=== PATIENT | male | born 1960 | race Caucasian/White ===

== ENCOUNTER → 2019-12-09 11:32 | Outpatient (BNVA) | payer BC, SELFPAY | PROVIDERS: Family Provider Nurse Practitioner Family; PCP Nurse Practitioner Family; Visit Provider Nurse Practitioner Family | DX: E11.9 Type 2 diabetes mellitus without complications (principal); I10 Essential (primary) hypertension | CPT/HCPCS: 80053; 83036; 85025 ==

== ENCOUNTER → 2020-01-22 11:21 | Outpatient (BNVA) | payer BC, SELFPAY | PROVIDERS: Family Provider Nurse Practitioner Family; PCP Nurse Practitioner Family; Visit Provider Nurse Practitioner Family | DX: M10.9 Gout, unspecified (principal); M19.90 Unspecified osteoarthritis, unspecified site; I10 Essential (primary) hypertension; R60.9 Edema, unspecified | CPT/HCPCS: 73562; 80053; 81001; 84550; 85025 ==

== ENCOUNTER → 2020-06-14 10:56 | Outpatient (BNVA) | payer BC, SELFPAY | PROVIDERS: Family Provider Nurse Practitioner Family; PCP Nurse Practitioner Family; Visit Provider Nurse Practitioner Family | DX: I10 Essential (primary) hypertension; Z13.6 Encounter for screening for cardiovascular disorders; M10.9 Gout, unspecified; E55.9 Vitamin D deficiency, unspecified; L03.039 Cellulitis of unspecified toe; E11.8 Type 2 diabetes mellitus with unspecified complications | CPT/HCPCS: 80053; 80061; 81003; 82306; 83036; 84443; 84550; 85025 ==

== ENCOUNTER → 2021-01-31 11:36 | Outpatient (BNVA) | payer OTHER, SELFPAY | PROVIDERS: Family Provider Nurse Practitioner Family; PCP Nurse Practitioner Family; Visit Provider Nurse Practitioner Family | DX: E11.9 Type 2 diabetes mellitus without complications (principal); Z13.6 Encounter for screening for cardiovascular disorders | CPT/HCPCS: 80053; 80061; 81003; 83036; 83721; 85025 ==

== ENCOUNTER 2021-05-30 13:42 | Outpatient (CLI) | payer OTHER, SELFPAY ==
--- NOTE | 2021-05-30 13:30 | USCV_ITS ---
Mauro Torres Age: 60 Gender: M : 1960 Exam Date: 05/30/2021 13:51 Ordering Phys: LORE Hartman APRN Technologist: Gerald Kelley [place]am [place] [facility] [place]: RT LEG PAIN AND SWELLING HISTORY: Lower extremity edema. PROCEDURES: Venous duplex imaging was performed in only the right lower extremity. The following venous structures were evaluated: common femoral vein, profunda vein, proximal portion of the greater saphenous vein, superficial femoral vein, and the popliteal vein. In addition, the posterior tibial and peroneal trunk were evaluated. FINDINGS: Evidence of acute occlusive deep vein thrombosis in the right popliteal, peroneal and posterior tibial veins with abnormal flow dynamics. Otherwise normal doppler exam. CONCLUSIONS There is evidence of acute RIGHT lower extremity deep venous thrombosis. Dr. Bhumika Franks DO (Electronically Signed) Final Date: 30 May 2021 15:56 Amended: 31 May 2021 14:41 C
== END 2021-05-30 13:43 | disposition home or self-care (01) ==
LOC: RAD 13:46
PROVIDERS: PCP Nurse Practitioner Family; Visit Provider Nurse Practitioner Family
DX: I82.401 Acute embolism and thrombosis of unspecified deep veins of right lower extremity (principal); M79.89 Other specified soft tissue disorders
CPT/HCPCS: 93971

== ENCOUNTER 2021-05-30 14:16 | Emergency (ER) | payer OTHER, SELFPAY ==
[2021-05-30 14:43] VITALS: BP 156/97; PULSE 105; RESP 18; TEMP 36.9; O2SAT 94; BMI 34.2
--- NOTE | 2021-05-30 15:05 | W.ED.EXTPRO ---
HPI - Extremity Problem General: Chief complaint: Extremity Injury, Lower Stated complaint: BLOOD CLOT BEHIND R KNEE; U/S JUST PERFORMED Time Seen by Provider: 05/30/21 15:05 History of Present Illness: HPI Narrative: Mr. Torres is a 60-year-old gentleman with significant past medical history of hypertension, hyperlipidemia, obesity, type 2 diabetes who presents to the emergency department due to blood clots. He reports 1 week of nontraumatic onset initially mild but now worsening left lower extremity pain and swelling. Pain is aching in nature and primarily in the left calf and behind the left knee. He has tried home medications without significant relief and presented to PCP today and an ultrasound was performed. Report on the ultrasound was DVT so he presented to the emergency department. Symptoms are worse with movement but do not go with rest. No other specific exacerbating, or alleviating factors identified. No family history of coagulopathy or clotting disorder. No recent extended immobility or surgeries. No history of similar. Patient denies hematemesis, dark tarry or bloody stool, hematuria. Review of Systems General: Reports: 10 or more systems reviewed and unremarkable except in HPI and below PFSH ED PFSH: Medical History Diabetic foot DM type 2 (diabetes mellitus, type 2) Essential hypertension Gout Hyperlipidemia associated with type 2 diabetes mellitus Hypersomnia Hypertension screen Inflamed toenail Osteoarthritis Prostate cancer screening Sleep apnea Vitamin D deficiency Social History Smoking and tobacco status: former smoker Second hand smoke exposure: No Smoking risk assessment/counseling performed?: No Alcohol intake: never Desire information about alcohol rehabilitation?: No Counseling given: No Desire information about substance/drug rehabilitation?: No Counseling given: No Physical Exam Narrative: EXAM NARRATIVE: GENERAL/CONSTITUTIONAL - well-appearing. Mildly uncomfortable due to leg pain Eyes - PERRL, no conjunctival injection ENMT - Atraumatic external nose and ears. Moist mucous membranes NECK - supple. trachea midline CARDIOVASCULAR - regular rate and rhythm. Peripheral pulses 2+ and equal RESPIRATORY -clear to auscultation bilaterally. ABDOMEN/GI - Nontender/Nondistended. MSK -left lower extremity visually larger than right. Tenderness palpation of posterior calf. Mild overlying stasis erythema. Distal CMS intact. SKIN - Warm, Dry NEURO - alert and appropriately oriented. Course ED course: - Patient was seen and evaluated by me at bedside - Patient placed on cardiac monitors, IV access obtained - Initial evaluation notable for exam as noted above -Patient has complex history of noncompliance and no recent lab work, therefore lab work was appropriate - Labs notable for mild hemoconcentration compared to prior, hyperglycemia without evidence of electrolyte derangement. -Ultrasound images report reviewed - Upon serial reexamination after treatment the patient was improved - Based on patient history, evaluation, labs, and imaging as interpreted the most likely cause of the patient's condition is DVT. Patient appropriate for NOAC initiation and outpatient management. - The results of ED evaluation were discussed with the patient including prescriptions and/or symptomatic cares (if applicable) including appropriate and responsible use, as well as further discussion regarding strict return precautions for any evidence of bleeding or traumatic injury, followup plan, and return precautions. The patient verbalized understanding and felt safe for discharge. - Patient discharged in satisfactory condition. Vital Signs: Vital signs: Vital Signs Temperature 98.5 F 05/30/21 14:43 Pulse Rate 105 H 05/30/21 14:43 Respiratory Rate 18 05/30/21 17:02 Blood Pressure 156/97 05/30/21 14:43 Pulse Oximetry 97 05/30/21 17:02 MDM - Extremity (Nontraumatic) Medical Records: Attestation: I reviewed the patient's medical records. Lab Data: Attestation: I reviewed the patient's lab results. Labs: Lab Results 05/30/21 05/30/21 16:01 16:01 WBC 9.7 10^3/uL 10^3/ uL (4.0-10.0) RBC 6.02 10^6/uL H 10 ^6/uL (4.1-5.3) Hgb 18.0 g/dL H g/dL (11.7-16.6) Hct 53.6 % H % (42.0-52.0) MCV 89.0 fl fl (80-94) MCH 29.9 pg pg (28.0-34.0) MCHC 33.6 g/dL g/dL (30.0-36.0) RDW 13.0 % % (12.1-15.1) Plt Count 147 10^3/cmm 10^3 /cmm (130-400) MPV 11.1 fL H fL (7.4-10.4) Neut % (Auto) 67.1 % % Lymph % (Auto) 19.7 % % [place] % (Auto) 10.2 % % Eos % (Auto) 1.9 % % Baso % (Auto) 0.6 % % Neut # (Auto) 6.53 10^3/uL 10^3 /uL (1.8-7.7) Lymph # (Auto) 1.9 10^3/uL 10^3/ uL (0.8-4.8) [place] # (Auto) 1.0 10^3/uL H 10^ 3/uL (0.2-0.9) Eos # (Auto) 0.2 10^3/uL 10^3/ uL (0.0-0.8) Baso # (Auto) 0.1 10^3/uL 10^3/ uL (0.0-0.1) Nucleated RBC % (a uto) 0 % % Nucleated RBCs # 0.0 /100WBC /100W BC Sodium 136 mmol/L mmol/L (136-145) Potassium 4.4 mmol/L mmol/L (3.5-5.1) Chloride 96 mmol/L L mmol/ L (98-107) Carbon Dioxide 26 mmol/L mmol/L (22-29) Anion Gap 18.4 (5-19) BUN 15 mg/dL mg/dL (8-23) Creatinine 0.7 mg/dL mg/dL (0.7-1.2) GFR Calculation 114.6 mL/min mL/m in (90-130) Glucose 301 mg/dL H mg/dL (65-115) Calculated Osmolal ity 294 mOsm/kg mOsm/ kg (285-295) Calcium 9.5 mg/dL mg/dL (8.5-10.5) Total Bilirubin 1.5 mg/dL H mg/dL (0.15-1.2) AST 12 U/L U/L (0-40) ALT 31 U/L U/L (0-41) Alkaline Phosphata se 124 IU/L IU/L (40-130) Total Protein 7.9 g/dL g/dL (6.6-8.7) Albumin 4.0 g/dL g/dL (3.5-5.2) Globulin 3.9 g/dL g/dL (1.3-4.6) Discharge Plan Discharge Patient Disposition: Home Clinical Impression: DVT (deep venous thrombosis) Condition: Stable Prescriptions: New Eliquis DVT-PE Treat 30D Start 5 mg (74 tabs) tablets,dose pack See Rx Instructions .ROUTE .COMPLEX Qty: 74 RF: 0 oxycodone 5 mg tablet 5 mg PO Q4H PRN (Reason: pain) Qty: 10 RF: 0 No Action metformin 1,000 mg tablet 1,000 mg PO BID 90 Days Qty: 180 RF: 1 Januvia 100 mg tablet 100 mg PO DAILY 90 Days Qty: 90 RF: 1 glipizide 5 mg tablet extended release 24hr 5 mg PO DAILY 90 Days Qty: 90 RF: 1 Levemir FlexTouch U-100 Insuln 100 unit/mL (3 mL) insulin pen 20 unit SUBCUT DAILY 90 Days Qty: 15 RF: 1 ezetimibe [Zetia] 10 mg tablet 10 mg PO DAILY 30 Days Qty: 30 RF: 2 atorvastatin 40 mg tablet 40 mg PO DAILY Qty: 30 RF: 5 (DME) pen needle, diabetic [BD Ultra-Fine Micro Pen Needle] 32 gauge x 1/4 needle See Rx Instructions .ROUTE .MEDSUPPLY Qty: 100 RF: 5 amlodipine 10 mg tablet See Rx Instructions .ROUTE .COMPLEX Qty: 30 RF: 2 losartan 50 mg tablet See Rx Instructions .ROUTE .COMPLEX Qty: 60 RF: 2 hydrochlorothiazide 25 mg tablet See Rx Instructions .ROUTE .COMPLEX Qty: 30 RF: 5 Discharge Orders: Discharge ED (Routine); Ordered 05/30/21 Ordered By: Mg Jacques Referrals: LORE Hartman, GREASE REFINER OPERATOR [Primary Care Provider] - Discharge Diet: Usual diet Discharge Activity: Resume usual activity Patient Instructions: Apixaban (By mouth) (Eliquis), Deep Vein Thrombosis (ED), Opioid Safety Activity Restrictions/Additional Instructions: Thank you for visiting the emergency department. You were seen and evaluated for DVT. You will be started on anticoagulation, a medication called Eliquis. This increases risk of bleeding. You will be also given a medication for pain control, I would expect as the Eliquis works your symptoms will improve. Do not combine with other sedating medications or operate vehicles while under the influence of opioids. They can make you constipated, I recommend a stool softener. Please return to the emergency department for any bleeding, any trauma, uncontrolled pain, or anything else that you are concerned about and feel needs emergency department evaluation. Coding Level of Care Code ED Senior [employer] Developer for Joanne Zhou
[2021-05-30 16:11] LABS: Basophils # 0.1 10^3/uL (0.0-0.1); Basophils % 0.6 %; Eosinophils # 0.2 10^3/uL (0.0-0.8); Eosinophils % 1.9 %; Hematocrit 53.6 % (42.0-52.0); Lymphocytes # 1.9 10^3/uL (0.8-4.8); Lymphocytes % 19.7 %; Mean Corpuscular HGB Conc 33.6 g/dL (30.0-36.0); Mean Corpuscular Hemoglobin 29.9 pg (28.0-34.0); Mean Platelet Volume 11.1 fL (7.4-10.4); Monocytes % 10.2 %; Neutrophils # 6.53 10^3/uL (1.8-7.7); Neutrophils % 67.1 %; Nucleated Red Blood Cells % 0 %; Platelet Count 147 10^3/cmm (130-400); Red Blood Count 6.02 10^6/uL (4.1-5.3); White Blood Count 9.7 10^3/uL (4.0-10.0)
[2021-05-30 17:00] LABS: Alanine Aminotransferase 31 U/L (0-41); Alkaline Phosphatase 124 IU/L (40-130); Anion Gap 18.4 (5-19); Aspartate Amino Transferase 12 U/L (0-40); Blood Urea Nitrogen 15 mg/dL (8-23); Calcium 9.5 mg/dL (8.5-10.5); Carbon Dioxide 26 mmol/L (22-29); Chloride 96 mmol/L (98-107); Globulin 3.9 g/dL (1.3-4.6); Glomerular Filtration Rate 114.6 mL/min (90-130); Glucose 301 mg/dL (65-115); Osmolality Calculated 294 mOsm/kg (285-295); Potassium 4.4 mmol/L (3.5-5.1); Sodium 136 mmol/L (136-145); Total Bilirubin 1.5 mg/dL (0.15-1.2); Total Protein 7.9 g/dL (6.6-8.7)
[2021-05-30 17:02] VITALS: RESP 18; O2SAT 97
[2021-05-30] MEDS: morphine 4 mg/mL SDV 1 mL IVP (17:02)
== END 2021-05-30 17:41 | disposition home or self-care (01) ==
PROVIDERS: Emergency Provider Emergency Medicine; PCP Nurse Practitioner Family
DX: I82.401 Acute embolism and thrombosis of unspecified deep veins of right lower extremity (principal); Z79.4 Long term (current) use of insulin; E11.9 Type 2 diabetes mellitus without complications; I10 Essential (primary) hypertension; E78.5 Hyperlipidemia, unspecified; Z87.891 Personal history of nicotine dependence
CPT/HCPCS: 80053; 85025; 96374; 99283; J2270

== ENCOUNTER → 2022-05-12 10:18 | Outpatient (BNVA) | payer SELFPAY | PROVIDERS: PCP Nurse Practitioner Family; Visit Provider Nurse Practitioner Family | DX: E11.9 Type 2 diabetes mellitus without complications (principal) | CPT/HCPCS: 80053; 81000; 83036; 85025 ==

== ENCOUNTER → 2023-08-06 10:27 | Outpatient (BNVA) | payer OTHER, BC, SELFPAY | PROVIDERS: PCP Nurse Practitioner Family; Visit Provider Nurse Practitioner Family | DX: E11.69 Type 2 diabetes mellitus with other specified complication (principal); E78.5 Hyperlipidemia, unspecified; Z12.5 Encounter for screening for malignant neoplasm of prostate; E55.9 Vitamin D deficiency, unspecified; I10 Essential (primary) hypertension; M10.9 Gout, unspecified | CPT/HCPCS: 80053; 80061; 81003; 82306; 83036; 84443; 85025; G0103 ==

== ENCOUNTER 2023-08-25 10:36 | Emergency (ER) | payer OTHER, BC, MEDICAID, SELFPAY ==
[2023-08-25 10:42] VITALS: BP 176/116; PULSE 114; RESP 25; TEMP 36.7; O2SAT 96
--- NOTE | 2023-08-25 11:00 | XRR_ITS ---
PROCEDURE INFORMATION: Exam: XR Chest Exam date and time: 08/25/2023 11:17 AM Age: 62 years old Clinical indication: Cough; Additional info: Cough congestion TECHNIQUE: Imaging protocol: Radiologic exam of the chest. Views: 1 view. COMPARISON: No relevant prior studies available. FINDINGS: Lungs: Minimal bibasilar subsegmental atelectasis. No infiltrate. Pleural spaces: Unremarkable. No pleural effusion. No pneumothorax. Heart/Mediastinum: Unremarkable. No cardiomegaly. Bones/joints: Unremarkable. XR/XR chest 1V portable [id number] IMPRESSION: Minimal bibasilar subsegmental atelectasis.
[2023-08-25] MEDS: racepinephrine 0.5 mL Neb INHALATION (11:06)
[2023-08-25 11:08] VITALS: PULSE 111; RESP 16; O2SAT 94
--- NOTE | 2023-08-25 11:12 | ED_ITS ---
HPI - SOB/Dyspnea 2 General: Chief Complaint: Shortness of Breath/Dyspnea Stated Complaint: SOB, Oxygen level low Time Seen by Provider: 08/25/23 10:55 History of Present Illness: HPI Narrative: Presents to the ER from urgent care complaining of wheezing sore throat shortness of breath and cough. Patient saw his PCP about a 2 weeks ago was given a prescription of doxycycline and prednisone. Prednisone lasted for 5 days. Doxycycline for 10 days. Patient finished both prescriptions he said he got a little bit better but now he is getting worse. Patient went to urgent care and was given a shot of Decadron and they suggested that he come here so is here for further evaluation. Patient's heart rates approximately 114 bpm, his respirations are 25/min, patient's O2 sat is about 96% on room air but he has audible wheezing and stridor. Review of Systems 2 General: Reports: 10 or more systems reviewed and unremarkable except in HPI and below PFSH ED 2 PFSH: Medical History Impacted cerumen of both ears Hyperlipidemia associated with type 2 diabetes mellitus Prostate cancer screening Diabetic foot Inflamed toenail Vitamin D deficiency Hypertension screen Hypersomnia Sleep apnea Gout Osteoarthritis DM type 2 (diabetes mellitus, type 2) Essential hypertension Social History Smoking and tobacco/nicotine status: former use of tobacco/nicotine Second hand smoke exposure: No Alcohol intake: never Substance/Drug Use: never Physical Exam 2 Const: COMMON NORMALS: no acute distress, average body habitus, patient oriented x3, no limitations, healthy appearing, alert and well nourished HENMT: COMMON NORMALS: normocephalic, atraumatic, hearing grossly normal bilaterally, external ears normal, Normal external nose present, moist oral mucous membranes and oropharynx normal HEAD & SCALP: normocephalic and atraumatic NOSE: Normal external nose present EXTERNAL EAR: Yes external ears normal Neck/C-Spine: COMMON NORMALS: full ROM, no lymphadenopathy, supple, no meningeal signs, no JVD and Thyroid normal THYROID: Thyroid normal Chest: COMMONS NORMALS: normal inspection of the chest and normal palpation of entire chest wall Resp: COMMON NORMALS: normal respiratory effort, No retractions and No use of accessory muscles; negative for clear to auscultation bilaterally (Diffuse wheezing and stridorous sounds.) AUSCULTATION: not clear to auscultation bilaterally (Diffuse wheezing and stridorous sounds.) Cardio: COMMON NORMALS: no JVD, regular rhythm, S1 normal heart sound present, S2 normal heart sound present, No gallops present (Cardio), No clicks present (Cardio), No murmurs present (Cardio) and No rub (Cardio); negative for regular rate (Tachycardic) RATE: abnormal rate (Tachycardic) RHYTHM: regular rhythm HEART SOUNDS: S1 normal heart sound present and S2 normal heart sound present GI: COMMON NORMALS: Normal to inspection, nondistended, normoactive bowel sounds present, Soft to palpation, non-tender, No hepatosplenomegaly present and no masses PALPATION: Yes Soft to palpation and Yes No hepatosplenomegaly present Neuro: COMMON NORMALS: patient oriented x3 SENSORIUM/ORIENTATION: Yes alert MENINGEAL SIGNS: Yes no meningeal signs Course 2 Vital Signs: Vital signs: Vital Signs Temperature 98.0 F 08/25/23 10:42 Pulse Rate 108 H 08/25/23 11:14 Respiratory Rate 16 08/25/23 11:08 Blood Pressure 176/116 08/25/23 10:42 Pulse Oximetry 94 08/25/23 11:08 Oxygen Delivery Me thod Room Air 08/25/23 11:08 MDM - SOB/Dyspnea Medical Decision Making Lab work was essentially unremarkable. Patient had low sodium 129, BUN/creatinine of 11 and 0.7, CBC showed white count of 11.7 hemoglobin hematocrit of 17.8/53.8. Chest x-ray showed minimal bibasilar subsegmental atelectasis. Patient was given 1 epi breathing treatment for upper airway stridorous sounds and 1 DuoNeb treatment. Respiratory panel is pending. Patient be discharged and notified of any positive results. Differential Diagnosis Likely acute exacerbation of chronic obstructive airways disease and community acquired pneumonia; Unlikely congestive heart failure, asthma with exacerbation or pulmonary embolism Medical Records I reviewed the patient's medical records. Lab Data I reviewed the patient's lab results. 08/25/23 11:17 08/25/23 11:17 Labs/Radiology: Radiology Impressions Chest X-Ray 08/25/23 11:00 IMPRESSION: Minimal bibasilar subsegmental atelectasis. Laboratory Results WBC 11.71 10^3/uL (3.29-11.43) H 08/25/23 11:17 RBC 6.20 10^6/uL (3.85-5.65) H 08/25/23 11:17 Hgb 17.80 g/dL (11.27-16.99) H 08/25/23 11:17 Hct 53.8 % (37-53) H 08/25/23 11:17 MCV 86.8 fl (82-101) 08/25/23 11:17 MCH 28.7 pg (27-33) 08/25/23 11:17 MCHC 33.1 g/dL (30-55) 08/25/23 11:17 RDW 13.2 % (12.1-15.1) 08/25/23 11:17 Plt Count 215 10^3/cmm (157-399) 08/25/23 11:17 MPV 9.9 fL (7.4-10.4) 08/25/23 11:17 Neut % (Auto) 71.6 % 08/25/23 11:17 Lymph % (Auto) 16.7 % 08/25/23 11:17 [place] % (Auto) 10.2 % 08/25/23 11:17 Eos % (Auto) 0.6 % 08/25/23 11:17 Baso % (Auto) 0.5 % 08/25/23 11:17 Neut # (Auto) 8.37 10^3/uL (1.8-7.7) H 08/25/23 11:17 Lymph # (Auto) 2.0 10^3/uL (0.8-4.8) 08/25/23 11:17 [place] # (Auto) 1.2 10^3/uL (0.2-0.9) H 08/25/23 11:17 Eos # (Auto) 0.1 10^3/uL (0.0-0.8) 08/25/23 11:17 Baso # (Auto) 0.1 10^3/uL (0.0-0.1) 08/25/23 11:17 Nucleated RBC % (auto) 0 % 08/25/23 11:17 Nucleated RBCs # 0.0 /100WBC 08/25/23 11:17 Sodium 129 mmol/L (136-145) L 08/25/23 11:17 Potassium 4.6 mmol/L (3.5-5.1) 08/25/23 11:17 Chloride 92 mmol/L (98-107) L 08/25/23 11:17 Carbon Dioxide 23 mmol/L (22-29) 08/25/23 11:17 Anion Gap 18.6 (5-19) 08/25/23 11:17 BUN 11 mg/dL (8-23) 08/25/23 11:17 Creatinine 0.7 mg/dL (0.7-1.2) 08/25/23 11:17 GFR Calculation 113.9 mL/min (90-130) 08/25/23 11:17 Glucose 308 mg/dL (65-115) H 08/25/23 11:17 Calculated Osmolality 279 mOsm/kg (285-295) L 08/25/23 11:17 Calcium 9.3 mg/dL (8.5-10.5) 08/25/23 11:17 Total Bilirubin 1.9 mg/dL (0.15-1.2) H 08/25/23 11:17 AST 14 U/L (0-40) 08/25/23 11:17 ALT 21 U/L (0-41) 08/25/23 11:17 Alkaline Phosphatase 152 U/L (40-130) H 08/25/23 11:17 Total Protein 7.6 g/dL (6.6-8.7) 08/25/23 11:17 Albumin 3.7 g/dL (3.5-5.2) 08/25/23 11:17 Globulin 3.9 g/dL (1.3-4.6) 08/25/23 11:17 All radiology interpretation(s) finalized by discharge Discharge Plan Discharge Patient Disposition: Home Clinical Impression: Shortness of breath Condition: Stable Prescriptions: No Action insulin degludec [Tresiba FlexTouch U-100] 100 unit/mL (3 mL) insulin pen 20 unit SUBCUT DAILY 30 Days Qty: 15 1RF dexamethasone sodium phosphate 4 mg/mL solution 8 mg IM ONCE Qty: 2 0RF levofloxacin 750 mg tablet 750 mg PO DAILY 7 Days Qty: 7 0RF prednisone 20 mg tablet 60 mg PO DAILY 5 Days Qty: 15 0RF albuterol sulfate 90 mcg/actuation HFA aerosol inhaler 2 inh inhalation Q6H PRN (Reason: shortness of breath or wheezing) Qty: 6.7 0RF atorvastatin 40 mg tablet 40 mg PO DAILY PRN (Reason: lipid elevation) 90 Days Qty: 90 1RF glipizide 5 mg tablet extended release 24hr 5 mg PO DAILY 90 Days Qty: 90 1RF (DME) pen needle, diabetic [BD Ultra-Fine Micro Pen Needle] 32 gauge x 1/4 needle See Rx Instructions .ROUTE .MEDSUPPLY Qty: 100 5RF Rx Instructions: daily hydrochlorothiazide 25 mg tablet 25 mg PO DAILY 90 Days Qty: 90 1RF losartan 100 mg tablet 100 mg PO DAILY amlodipine 10 mg tablet 10 mg PO DAILY Discharge Orders: Discharge ED (Routine); Ordered 08/25/23 Ordered By: Andrés Griffith Referrals: Man Sinclair FNP [Primary Care Provider] - 1 week Patient Instructions: Shortness of Breath (ED) Activity Restrictions/Additional Instructions: Your lab work in the ER and your chest x-ray is unremarkable. You have a respiratory panel pending. You will be called with any positive results. Otherwise take your medicine as directed. Please follow-up with your family practice physician within neck 7 to 10 days for further evaluation and treatment. Coding Level of Care Code ED Ice Resurfacing Machine Operators for Joanne Zhou
[2023-08-25 11:14] VITALS: PULSE 108
[2023-08-25 11:23] LABS: Basophils # 0.1 10^3/uL (0.0-0.1); Basophils % 0.5 %; Eosinophils # 0.1 10^3/uL (0.0-0.8); Eosinophils % 0.6 %; Hematocrit 53.8 % (37-53); Lymphocytes % 16.7 %; Mean Corpuscular HGB Conc 33.1 g/dL (30-55); Mean Corpuscular Hemoglobin 28.7 pg (27-33); Mean Corpuscular Volume 86.8 fl (82-101); Mean Platelet Volume 9.9 fL (7.4-10.4); Monocytes # 1.2 10^3/uL (0.2-0.9); Monocytes % 10.2 %; Neutrophils # 8.37 10^3/uL (1.8-7.7); Neutrophils % 71.6 %; Nucleated Red Blood Cells % 0 %; Platelet Count 215 10^3/cmm (157-399); Red Cell Distribution Width 13.2 % (12.1-15.1); White Blood Count 11.71 10^3/uL (3.29-11.43)
--- NOTE | 2023-08-25 11:27 | PC.NURSE ---
Went to give patient dexamethasone IM and the patient told me when he was at Urgent Care clinic prior to coming to the ER he was given a shot of steroids that he thought was the same name as I was going to give him. I called urgent care and verified with Dr. Thomas that the patient was given 8 mg of decadron IM at Urgent Care prior to coming to the ER.
[2023-08-25 11:50] LABS: Alanine Aminotransferase 21 U/L (0-41); Albumin Level 3.7 g/dL (3.5-5.2); Alkaline Phosphatase 152 U/L (40-130); Blood Urea Nitrogen 11 mg/dL (8-23); Calcium 9.3 mg/dL (8.5-10.5); Carbon Dioxide 23 mmol/L (22-29); Chloride 92 mmol/L (98-107); Globulin 3.9 g/dL (1.3-4.6); Glomerular Filtration Rate 113.9 mL/min (90-130); Glucose 308 mg/dL (65-115); Osmolality Calculated 279 mOsm/kg (285-295); Sodium 129 mmol/L (136-145); Total Bilirubin 1.9 mg/dL (0.15-1.2); Total Protein 7.6 g/dL (6.6-8.7)
[2023-08-25 11:51] LABS: Anion Gap 18.6 (5-19); Aspartate Amino Transferase 14 U/L (0-40); Potassium 4.6 mmol/L (3.5-5.1)
[2023-08-25] MEDS: ipratropium-albuterol 3 mL Neb INHALATION (15:29)
[2023-08-25 15:30] VITALS: PULSE 114; RESP 18; O2SAT 94
[2023-08-25 15:41] LABS: Adenovirus Not Detected (NOT DETECT); Chlamydia Pneumoniae Not Detected (NOT DETECT); Coronavirus 229E,HKU1,NL63,OC4 Not Detected (NOT DETECT); Human Metapneumovirus Not Detected (NOT DETECT); Human Rhinovirus/Enterovirus Not Detected (NOT DETECT); Influenza A Not Detected (NOT DETECT); Influenza A H1 Not Detected (NOT DETECT); Influenza A H1-2009 Not Detected (NOT DETECT); Influenza A H3 Not Detected (NOT DETECT); Influenza B Not Detected (NOT DETECT); Mycoplasma Pneumoniae Not Detected (NOT DETECT); Parainfluenza Virus Type 1 Not Detected (NOT DETECT); Parainfluenza Virus Type 2 Not Detected (NOT DETECT); Parainfluenza Virus Type 3 Not Detected (NOT DETECT); Parainfluenza Virus Type 4 Not Detected (NOT DETECT); Respiratory Syncytial Virus A Not Detected (NOT DETECT); Respiratory Syncytial Virus B Not Detected (NOT DETECT); SARS-COV-2 Not Detected (NOT DETECT)
== END 2023-08-25 15:56 | disposition home or self-care (01) ==
PROVIDERS: Emergency Provider Emergency Medicine; PCP Nurse Practitioner Family
DX: R06.02 Shortness of breath (principal); Z79.84 Long term (current) use of oral hypoglycemic drugs; Z79.4 Long term (current) use of insulin; E78.5 Hyperlipidemia, unspecified; E11.9 Type 2 diabetes mellitus without complications; I10 Essential (primary) hypertension; Z87.891 Personal history of nicotine dependence
CPT/HCPCS: 36415; 71045; 80053; 85025; 87486; 87581; 87633; 94640; 99284; J1100

== ENCOUNTER → 2024-04-02 08:41 | Outpatient (BNVA) | payer OTHER, SELFPAY | PROVIDERS: PCP Nurse Practitioner Family; Visit Provider Nurse Practitioner Family | DX: I10 Essential (primary) hypertension (principal); E11.69 Type 2 diabetes mellitus with other specified complication; E78.5 Hyperlipidemia, unspecified; M10.9 Gout, unspecified | CPT/HCPCS: 80053; 80061; 81003; 82306; 83036; 84443; 84550; 85025 ==

== ENCOUNTER → 2024-09-10 08:50 | Outpatient (BNVA) | payer MEDICARE, SELFPAY | PROVIDERS: PCP Nurse Practitioner Family; Visit Provider Nurse Practitioner Family | DX: Z12.5 Encounter for screening for malignant neoplasm of prostate (principal); E11.9 Type 2 diabetes mellitus without complications; I10 Essential (primary) hypertension; E55.9 Vitamin D deficiency, unspecified | CPT/HCPCS: 80053; 80061; 81003; 82306; 83036; 83735; 84100; 84443; 85025; G0103 ==

== ENCOUNTER → 2024-09-23 08:56 | Outpatient (BNVA) | payer MEDICARE, SELFPAY | PROVIDERS: PCP Nurse Practitioner Family; Visit Provider Podiatrist Foot & Ankle Surgery | DX: M79.671 Pain in right foot (principal); M79.672 Pain in left foot; E11.69 Type 2 diabetes mellitus with other specified complication; L60.3 Nail dystrophy; M19.071 Primary osteoarthritis, right ankle and foot; M19.072 Primary osteoarthritis, left ankle and foot; Z79.4 Long term (current) use of insulin | CPT/HCPCS: 73630; 99203 ==

== ENCOUNTER 2024-10-27 13:30 | Emergency (ER) | payer MEDICARE, SELFPAY ==
--- NOTE | 2024-10-27 13:32 | USCV_ITS ---
Mauro Torres Age: 64 Gender: M : 1960 Exam Date: 10/27/2024 14:09 Ordering Phys: Iggy Adorno MD Technologist: JOVAN Exam Location: [facility] – [place] Indication: Rt LE Pain HISTORY: Lower extremity pain. PROCEDURES: Venous duplex imaging was performed in only the right lower extremity. The following venous structures were evaluated: common femoral vein, profunda vein, proximal portion of the greater saphenous vein, superficial femoral vein, and the popliteal vein. In addition, the posterior tibial and peroneal trunk were evaluated. Serial compression, augmentation maneuvers, and spectral Doppler flow evaluation were performed. FINDINGS: Normal 2-D Doppler and augmentation and compressibility throughout the lower extremity venous structures. Additional imaging through the proximal calf veins also reveals no thrombus. Limited evaluation of the greater saphenous vein is patent with no thrombus. CONCLUSIONS No DVT right lower extremity. Dr. Bhumika Franks DO (Electronically Signed) Final Date: 27 October 2024 16:08 S
[2024-10-27 13:44] VITALS: BP 148/83; PULSE 104; TEMP 37.2; O2SAT 92; BMI 34.3
--- NOTE | 2024-10-27 15:01 | ED_ITS ---
HPI - Extremity Problem General: Chief complaint: Extremity Problem,Nontraumatic Stated complaint: R leg possible b/c sent from Time Seen by Provider: 10/27/24 14:37 Source: patient Mode of arrival: ambulatory Limitations: no limitations History of Present Illness: 64-year-old male presents to the ER comp laining of right sided calf pain with a past medical history of diabetes, hypertension, DVT. Patient believes he is having another DVT on his leg. Patient states he started to have right-sided calf pain a week ago and for the past few days his pain has increased. He also has had a cough x 2 days with sputum-denies hemoptysis. He is not on any blood thinners currently. Patient denies any chest pain, shortness of breath, fever, abdominal pain. MD Complaint: extremity pain Onset (ago): week(s) Pain Consistency: constant Location: right and lower extremity (Right calf) Quality: aching and dull Radiation: none Relieving factors: nothing Exacerbating factors: rest Associated symptoms: Reports no associated symptoms; Deny chest pain or fever(s) Related Data Home Medications ?Medication ?Instructions ?Recorded ?Confirmed atorvastatin 40 mg tablet 40 mg PO QPM lipid elevation 10/27/24 10/27/24 Previous Rx's ?Medication ?Instructions ?Recorded insulin lispro 100 unit/mL 1 unit (0.01 mL) SUBCUT QAM #15 mL 06/03/24 subcutaneous pen (Humalog KwikPen (U-100) Insulin) tamsulosin 0.4 mg capsule (Flomax) 0.4 mg PO DAILY #30 caps 09/10/24 amlodipine 10 mg tablet 10 mg PO DAILY 90 days #90 t abs 09/12/24 pen needle, diabetic 32 gauge x #100 ea 09/12/2408/30 (BD Ultra-Fine Micro Pen Needle) diclofenac sodium 1 % topical gel 2 g topical TID PRN arthritis pain 09/24/24 30 days #100 grams telmisartan 80 mg tablet 80 mg PO DAILY 30 days #30 t abs 09/24/24 blood-glucose sensor (Dexcom G7 #1 ea 10/08/24 Sensor device) glipizide 5 mg tablet, extended 5 mg PO DAILY 90 days #90 ea 10/08/24 release 24 hr hydrochlorothiazide 25 mg tablet 25 mg PO DAILY 90 day s #90 tabs 10/08/24 insulin degludec 200 unit/mL (3 84 unit (0.42 mL) SUBC UT Q24H 30 10/08/24 mL) subcutaneous pen (Tresiba days #12.6 mL FlexTouch U-200 insulin) Allergies Allergy/AdvReac Type Severity Reaction Status Date / Time No Known Allergies Allergy Verified 10/27/24 13:50 Review of Systems Const: Denies: fever(s), chills or body aches Card: Denies: chest pain, palpitations, irregular heart rhythm, lightheadedness, syncope or pre-syncope Resp: Reports: productive cough; Denies: dyspnea GI: Denies: abdominal pain Musc: Reports: extremity pain (R calf, warm to touch) and extremity swelling; Denies: neck pain, back pain, joint pain, joint swelling or joint redness Skin/Breast: Denies: erythema, skin tenderness or new lesions Neuro: Denies: headache(s), numbness in extremities, weakness in extremities or sensory changes PFSH ED PFSH: Medical History Erectile dysfunction Elevated hemoglobin Polycythemia Elevated hemoglobin A1c Enrolled in chronic care management BPH (benign prostatic hyperplasia) Bilateral foot pain Toenail deformity Insulin dependent diabetes mellitus Toenail fungus Impacted cerumen of both ears Hyperlipidemia associated with type 2 diabetes mellitus Prostate cancer screening Diabetic foot Inflamed toenail Vitamin D deficiency Hypertension screen Hypersomnia Sleep apnea Gout Osteoarthritis DM type 2 (diabetes mellitus, type 2) Essential hypertension Social History Smoking and tobacco/nicotine status: former use of tobacco/nicotine Second hand smoke exposure: No Alcohol intake: never Substance/Drug Use: never Physical Exam Const: COMMON NORMALS: no acute distress, patient oriented x3, no limitations, alert and well nourished GENERAL APPEARANCE: cooperative ORIENTATION/CONSCIOUSNESS: Yes awake, Yes oriented to person and Yes oriented to time Neck/C-Spine: COMMON NORMALS: no JVD Resp: COMMON NORMALS: normal respiratory effort, No retractions and clear to auscultation bilaterally AUSCULTATION: clear to auscultation bilaterally Cardio: COMMON NORMALS: no JVD, regular rate and regular rhythm RATE: regular rate RHYTHM: regular rhythm Extremity: COMMON NORMALS: full ROM, capillary refill normal and no pedal edema GENERAL: Yes normal exam except as noted and Yes calf tenderness (Warm to touch on R calf) RIGHT LOWER EXTREMITY: Yes lower leg OTHER: mild pain to anteriomedial R calf-possible palpable cord?; negative Sergio's Neuro: COMMON NORMALS: patient oriented x3, moves all extremities, no focal motor deficits and no sensory deficits noted SENSORIUM/ORIENTATION: Yes alert, Yes oriented to person and Yes oriented to time Course Vital Signs: Vital signs: Vital Signs Temperature 98.9 F 10/27/24 13:44 Pulse Rate 101 H 10/27/24 16:09 Blood Pressure 143/93 10/27/24 16:09 Pulse Oximetry 94 10/27/24 16:09 Oxygen Delivery Me thod Room Air 10/27/24 13:44 MDM - Extremity (Nontraumatic) Medical Decision Making US of his lower extremity does not show any DVT. He is not complaining of chest pain, dyspnea, syncope. At time of my physical examination heart rate is in the 90s and he is satting 94 to 95% on room air. CXR is unremarkable. Discussed conservative therapies for his cough/likely viral URI. Discussed symptom treatment for his calf discomfort. Would like him to follow-up with primary care later this week. Return precautions discussed. Medical Records I reviewed the patient's medical records. Lab Data Radiology Impressions Chest X-Ray 10/27/24 15:13 IMPRESSION: Stable chest without acute abnormality. XR interpretation done by ED provider, pending radiology final review (per US tech-negative for DVT) Discharge Plan Discharge Patient Disposition: Home Clinical Impression: Right calf pain Condition: Stable Prescriptions: No Action insulin degludec [Tresiba FlexTouch U-200] 200 unit/mL (3 mL) insulin pen 84 unit SUBCUT Q24H MDD 100 30 Days Qty: 12.6 1RF hydrochlorothiazide 25 mg tablet 25 mg PO DAILY 90 Days Qty: 90 1RF glipizide 5 mg tablet extended release 24hr 5 mg PO DAILY 90 Days Qty: 90 1RF (DME) Dexcom G7 Sensor Device See Rx Instructions .Route Qty: 1 5RF Rx Instructions: As directed - change every 10 day tamsulosin [Flomax] 0.4 mg capsule 0.4 mg PO DAILY Qty: 30 1RF diclofenac sodium 1 % gel 2 g topical TID PRN (Reason: arthritis pain) 30 Days Qty: 100 2RF Rx Instructions: apply to single elbow, wrist or hand; for hand includes palm/fingers/back of hand telmisartan 80 mg tablet 80 mg PO DAILY 30 Days Qty: 30 1RF Rx Instructions: Stop Losartan insulin lispro [Humalog KwikPen Insulin] 100 unit/mL insulin pen 1 unit SUBCUT QAM MDD 12 units Qty: 15 0RF Rx Instructions: Sliding scale insulin amlodipine 10 mg tablet 10 mg PO DAILY 90 Days Qty: 90 1RF (DME) pen needle, diabetic [BD Ultra-Fine Micro Pen Needle] 32 gauge x 1/4 needle See Rx Instructions .ROUTE .MEDSUPPLY Qty: 100 5RF Rx Instructions: daily atorvastatin 40 mg tablet 40 mg PO QPM Discharge Orders: Discharge ED (Routine); Ordered 10/27/24 Ordered By: Geni Bowman Referrals: Aba Sinclair, MANAGER MBA [Primary Care Provider] - Activity Restrictions/Additional Instructions: As we discussed, your ultrasound today did not show any evidence of a deep vein thrombosis (DVT). Other etiologies could include a superficial phlebitis or thrombophlebitis as well as musculoskeletal calf strain/sprain. You may alternate ice and heat to the calf as well as elevate. Please follow-up with primary care later this week for reevaluation. You need to return to the emergency department for onset of chest pain, shortness of breath, difficulty breathing, passing out episodes, or any other concerns you may have. Print Language: Slovak Coding Level of Care Code ED Manager [employer] for Joanne Zhou
--- NOTE | 2024-10-27 15:13 | XR_ITS ---
WS: [id number] XR chest 1V portable [id number] REASON FOR EXAM: sob FINDINGS: The chest is relatively unchanged compared to 08/25/2023. Moderate tortuosity and ectasia of the thoracic aorta. The heart is at the upper limits of normal in size. Mild central pulmonary venous congestion. Calcified granulomatous disease in both hemithoraces. Chronic reticular interstitial lung opacities. Bony thorax is intact without significant focal abnormality. XR/XR chest 1V portable [id number] IMPRESSION: Stable chest without acute abnormality.
[2024-10-27 16:09] VITALS: BP 143/93; PULSE 101; O2SAT 94
== END 2024-10-27 16:10 | disposition home or self-care (01) ==
PROVIDERS: Emergency Provider Physician Assistant; PCP Nurse Practitioner Family
DX: M79.604 Pain in right leg (principal); Z79.4 Long term (current) use of insulin; Z87.891 Personal history of nicotine dependence; E11.9 Type 2 diabetes mellitus without complications; I10 Essential (primary) hypertension
CPT/HCPCS: 71045; 93971; 99284

== ENCOUNTER → 2024-10-31 08:56 | Outpatient (BNVA) | payer MEDICARE, SELFPAY | PROVIDERS: PCP Nurse Practitioner Family; Visit Provider Nurse Practitioner Family | DX: I73.9 Peripheral vascular disease, unspecified (principal); E11.9 Type 2 diabetes mellitus without complications; D75.1 Secondary polycythemia; J84.89 Other specified interstitial pulmonary diseases; D71 Functional disorders of polymorphonuclear neutrophils; Z87.891 Personal history of nicotine dependence; J44.9 Chronic obstructive pulmonary disease, unspecified; M79.604 Pain in right leg | CPT/HCPCS: 73590; 82668; 85007; 85027 ==

== ENCOUNTER → 2024-11-04 10:04 | Outpatient (BNVA) | payer MEDICARE, SELFPAY | PROVIDERS: PCP Nurse Practitioner Family; Visit Provider Podiatrist Foot & Ankle Surgery | DX: E11.42 Type 2 diabetes mellitus with diabetic polyneuropathy (principal); L60.3 Nail dystrophy; M19.90 Unspecified osteoarthritis, unspecified site; M19.071 Primary osteoarthritis, right ankle and foot; M19.072 Primary osteoarthritis, left ankle and foot; G62.9 Polyneuropathy, unspecified; Z79.84 Long term (current) use of oral hypoglycemic drugs; Z79.4 Long term (current) use of insulin | CPT/HCPCS: 99213 ==

== ENCOUNTER 2024-11-20 14:34 | Oncology outpatient (recurring) (ONCR) | payer MEDICARE, SELFPAY | END 2024-11-24 23:59 | disposition home or self-care (01) | PROVIDERS: PCP Nurse Practitioner Family; Visit Provider Internal Medicine | DX: D75.1 Secondary polycythemia (principal); Z87.891 Personal history of nicotine dependence; J44.9 Chronic obstructive pulmonary disease, unspecified; E11.9 Type 2 diabetes mellitus without complications; I10 Essential (primary) hypertension; Z86.718 Personal history of other venous thrombosis and embolism; G47.33 Obstructive sleep apnea (adult) (pediatric); R06.83 Snoring | CPT/HCPCS: 99204 ==

== ENCOUNTER 2024-12-03 09:33 | Oncology outpatient (recurring) (ONCR) | payer MEDICARE, SELFPAY ==
--- NOTE | 2024-12-03 10:53 | CT_ITS ---
WS: [id number] CT chest w con* [id number] HISTORY: WORSENING SHORTNESS OF BREATH/COPD/INTERSTITIAL LUNG DZ TECHNIQUE: Axial imaging performed through the thorax. Coronal and sagittal reformats are submitted. All CT scans at [facility] use at least one of these dose optimization techniques: automated exposure control; mA and/or kV adjustment per patient size (includes targeted exams where dose is matched to clinical indication); or iterative reconstruction. CONTRAST: Omnipaque 350; 100 mL IV. DLP: 596.96 mGy COMPARISON: Chest radiograph 10/27/2024 Lungs and central airway: Well-aerated lungs. No pulmonary mass, nodule or pneumonia. Very slight minimal linear atelectasis at the LEFT lung base. Pleura: Normal. No pleural effusion. Heart and pericardium: Normal size heart with no pericardial effusion. Mediastinum and patricio: No mediastinum or hilar adenopathy. Vessels: Mildly dilated pulmonary artery. Minimal atherosclerosis aorta without dilatation. Chest wall and lower neck: No soft tissue masses. Upper abdomen: Very minimal nodularity in thickening of the RIGHT adrenal gland. Liver as visualized is negative. Osseous structures: No destructive process. CT/CT chest w con* [id number] IMPRESSION: 1. No pulmonary mass or pneumonia. 2. Minimal atelectasis at the LEFT lung base. 3. No adenopathy. 4. Mild pulmonary hypertension. 5. Mild atherosclerosis aorta.
[2024-12-03 11:00] LABS: Basophils # 0.1 10^3/uL (0.0-0.1); Basophils % 0.7 %; Eosinophils # 0.2 10^3/uL (0.0-0.8); Hematocrit 49.5 % (37-53); Lymphocytes # 2.3 10^3/uL (0.8-4.8); Lymphocytes % 26.3 %; Mean Corpuscular HGB Conc 33.5 g/dL (30-55); Mean Corpuscular Hemoglobin 28.7 pg (27-33); Mean Corpuscular Volume 85.5 fl (82-101); Monocytes # 0.9 10^3/uL (0.2-0.9); Monocytes % 10.2 %; Neutrophils # 5.21 10^3/uL (1.8-7.7); Neutrophils % 60.2 %; Nucleated Red Blood Cells % 0 %; Platelet Count 214 10^3/cmm (157-399); Red Blood Count 5.79 10^6/uL (3.85-5.65); Red Cell Distribution Width 14.3 % (12.1-15.1); White Blood Count 8.64 10^3/uL (3.29-11.43)
[2024-12-03 11:02] LABS: Erythrocyte Sedimentation Rate 25 mm/hr (0-10)
[2024-12-03] MEDS: iohexol 350 mg/mL 500 mL Btl (per mL) IV (11:18)
[2024-12-03 11:21] LABS: Alanine Aminotransferase 23 U/L (0-41); Albumin Level 4.1 g/dL (3.5-5.2); Alkaline Phosphatase 94 U/L (40-130); Anion Gap 17.3 (5-19); Aspartate Amino Transferase 16 U/L (0-40); Blood Urea Nitrogen 19 mg/dL (8-23); Calcium 9.8 mg/dL (8.5-10.5); Carbon Dioxide 24 mmol/L (22-29); Chloride 101 mmol/L (98-107); Ferritin 530 ng/mL (30-400); Globulin 3.6 g/dL (1.3-4.6); Glomerular Filtration Rate 113.2 mL/min (90-130); Glucose 155 mg/dL (65-115); Iron 115 ug/dL (59-158); Lactate Dehydrogenase 140 U/L (135-225); Osmolality Calculated 291 mOsm/kg (285-295); Percent Saturation 36.8 % (20-50); Phosphorus 3.6 mg/dL (2.5-4.5); Potassium 4.3 mmol/L (3.5-5.1); Sodium 138 mmol/L (136-145); Total Bilirubin 1.5 mg/dL (0.15-1.2); Total Iron Binding Capacity 312 mcg/dl; Total Protein 7.7 g/dL (6.6-8.7); Unsaturated Iron Binding 197 ug/dL (112-347); Uric Acid 7.6 mg/dL (3.4-7.0)
[2024-12-03 11:41] LABS: Folate Level 16.9 ng/mL (4.5-32.2)
[2024-12-04 08:29] LABS: PROTEIN, TOTAL 7.2 g/dL (6.1-8.1)
[2024-12-04 19:25] LABS: PTT-LA-Screen 30 sec (< OR = 40)
[2024-12-04 20:40] LABS: ALBUMIN 3.9 g/dL (3.8-4.8); ALPHA 1 GLOBULIN 0.3 g/dL (0.2-0.3); BETA 1 GLOBULIN 0.4 g/dL (0.4-0.6); BETA 2 GLOBULIN 0.5 g/dL (0.2-0.5); GAMMA GLOBULIN 1.2 g/dL (0.8-1.7)
[2024-12-05 07:23] LABS: CARDIOLIPIN AB (IGA) <2.0 APL-U/mL; CARDIOLIPIN AB (IGG) <2.0 GPL-U/mL; CARDIOLIPIN AB (IGM) <2.0 MPL-U/mL
[2024-12-05 17:15] LABS: Anti-Nuclear Antibody Screen NEGATIVE (NEGATIVE)
[2024-12-06 04:40] LABS: Beta 2 Glycoprotein IGA <2.0 U/mL (<20.0); Beta 2 Glycoprotein IGG <2.0 U/mL (<20.0); Beta 2 Glycoprotein IGM <2.0 U/mL (<20.0)
[2024-12-06 19:58] LABS: Immunofixation Serum Normal pattern.
[2024-12-07 01:34] LABS: PROTEIN C, ACTIVITY 131 % normal (70-180)
[2024-12-10 02:59] LABS: Factor 5 Leiden Mutation POSITIVE
[2024-12-11 20:45] LABS: PROTHROMBIN (FACTOR II) 20210G NEGATIVE
== END 2024-12-24 23:59 | disposition home or self-care (01) ==
PROVIDERS: PCP Nurse Practitioner Family; Visit Provider Internal Medicine
DX: J44.9 Chronic obstructive pulmonary disease, unspecified (principal); D75.1 Secondary polycythemia; J98.11 Atelectasis; I27.20 Pulmonary hypertension, unspecified; I70.0 Atherosclerosis of aorta
CPT/HCPCS: 36415; 71260; 80053; 81241; 82232; 82728; 82746; 83540; 83550; 83615; 84100; 84155; 84165; 84550; 85025; 85045; 85210; 85303; 85613; 85651; 85730; 86038; 86140; 86146; 86147; 86334; 86880

== ENCOUNTER → 2024-12-12 08:16 | Outpatient (BNVA) | payer MEDICARE, SELFPAY | PROVIDERS: PCP Nurse Practitioner Family; Visit Provider Nurse Practitioner Family | DX: E11.8 Type 2 diabetes mellitus with unspecified complications (principal) | CPT/HCPCS: 83036 ==

== ENCOUNTER → 2025-01-06 11:12 | Outpatient (BNVA) | payer MEDICARE, SELFPAY | PROVIDERS: PCP Nurse Practitioner Family; Visit Provider Podiatrist Foot & Ankle Surgery | DX: E11.42 Type 2 diabetes mellitus with diabetic polyneuropathy (principal); L60.3 Nail dystrophy; M19.90 Unspecified osteoarthritis, unspecified site; G62.9 Polyneuropathy, unspecified; Z79.4 Long term (current) use of insulin; Z79.84 Long term (current) use of oral hypoglycemic drugs | CPT/HCPCS: 11721 ==

== ENCOUNTER 2025-01-07 14:26 | Oncology outpatient (recurring) (ONCR) | payer OTHER, SELFPAY ==
[2025-01-07 15:14] LABS: Basophils # 0.1 10^3/uL (0.0-0.1); Basophils % 0.7 %; Eosinophils # 0.2 10^3/uL (0.0-0.8); Eosinophils % 2.5 %; Hematocrit 45.5 % (37-53); Lymphocytes # 2.5 10^3/uL (0.8-4.8); Lymphocytes % 29.9 %; Mean Corpuscular HGB Conc 33.6 g/dL (30-55); Mean Corpuscular Volume 86.3 fl (82-101); Mean Platelet Volume 10.9 fL (7.4-10.4); Monocytes # 0.7 10^3/uL (0.2-0.9); Monocytes % 8.4 %; Neutrophils # 4.84 10^3/uL (1.8-7.7); Nucleated Red Blood Cells % 0 %; Platelet Count 221 10^3/cmm (157-399); Red Blood Count 5.27 10^6/uL (3.85-5.65); Red Cell Distribution Width 14.6 % (12.1-15.1); White Blood Count 8.34 10^3/uL (3.29-11.43)
[2025-01-07 15:44] LABS: Alanine Aminotransferase 24 U/L (0-41); Albumin Level 3.8 g/dL (3.5-5.2); Alkaline Phosphatase 92 U/L (40-130); Anion Gap 19.2 (5-19); Aspartate Amino Transferase 18 U/L (0-40); Blood Urea Nitrogen 18 mg/dL (8-23); Calcium 8.8 mg/dL (8.5-10.5); Carbon Dioxide 22 mmol/L (22-29); Chloride 102 mmol/L (98-107); Creatinine Clr Calc Pharmacy 109.4276; Glomerular Filtration Rate 113.2 mL/min (90-130); Glucose 215 mg/dL (65-115); Osmolality Calculated 296 mOsm/kg (285-295); Potassium 4.2 mmol/L (3.5-5.1); Sodium 139 mmol/L (136-145); Total Bilirubin 0.9 mg/dL (0.15-1.2); Total Protein 6.8 g/dL (6.6-8.7)
[2025-01-15 20:34] LABS: Factor 5 Leiden Mutation POSITIVE
[2025-01-28 19:24] LABS: CALR Exon 9 Mutation NOT DETECTED (NOT DETECTED); JAK2 Exon 12 Mutation NOT DETECTED (NOT DETECTED); JAK2 V617 Clinical Indication polycythemia; JAK2 V617 Mutation NOT DETECTED (NOT DETECTED); MPL Exon 10 Mutation NOT DETECTED (NOT DETECTED); Specimen Source blood
== END 2025-01-24 23:59 | disposition home or self-care (01) ==
PROVIDERS: Internal Medicine Medical Oncology; PCP Nurse Practitioner Family; Visit Provider Internal Medicine
DX: M79.606 Pain in leg, unspecified (principal); J44.9 Chronic obstructive pulmonary disease, unspecified; D75.1 Secondary polycythemia; E11.9 Type 2 diabetes mellitus without complications; I10 Essential (primary) hypertension; I82.401 Acute embolism and thrombosis of unspecified deep veins of right lower extremity; Z87.891 Personal history of nicotine dependence
CPT/HCPCS: 36415; 80053; 81219; 81241; 81270; 81279; 81339; 85025; 99214

== ENCOUNTER 2025-02-16 20:00 | Outpatient (CLI) | payer OTHER, SELFPAY | END 2025-02-16 20:01 | disposition home or self-care (01) | LOC: SLEEP 02-17 01:00 | PROVIDERS: PCP Nurse Practitioner Family; Visit Provider Internal Medicine Pulmonary Disease | DX: G47.33 Obstructive sleep apnea (adult) (pediatric) (principal); G47.36 Sleep related hypoventilation in conditions classified elsewhere | CPT/HCPCS: 95810 ==

== ENCOUNTER → 2025-03-31 07:56 | Outpatient (BNVA) | payer MEDICARE, SELFPAY | PROVIDERS: PCP Nurse Practitioner Family; Visit Provider Podiatrist Foot & Ankle Surgery | DX: E11.42 Type 2 diabetes mellitus with diabetic polyneuropathy (principal); L60.3 Nail dystrophy; M19.90 Unspecified osteoarthritis, unspecified site; G62.9 Polyneuropathy, unspecified; Z79.84 Long term (current) use of oral hypoglycemic drugs; Z79.4 Long term (current) use of insulin | CPT/HCPCS: 11721 ==

== ENCOUNTER 2025-04-06 15:22 | Oncology outpatient (recurring) (ONCR) | payer MEDICARE, SELFPAY ==
[2025-04-06 15:48] LABS: Hematocrit 48.8 % (37-53); Hemoglobin 16.60 g/dL (11.27-16.99); Mean Corpuscular HGB Conc 34.0 g/dL (30-55); Mean Corpuscular Hemoglobin 29.1 pg (27-33); Mean Corpuscular Volume 85.6 fl (82-101); Nucleated Red Blood Cells % 0 %; Platelet Count 211 10^3/cmm (157-399); Red Blood Count 5.70 10^6/uL (3.85-5.65); White Blood Count 9.39 10^3/uL (3.29-11.43)
[2025-04-06 16:05] LABS: Alanine Aminotransferase 32 U/L (0-41); Albumin Level 4.0 g/dL (3.5-5.2); Alkaline Phosphatase 97 U/L (40-130); Anion Gap 15.3 (5-19); Aspartate Amino Transferase 21 U/L (0-40); Blood Urea Nitrogen 18 mg/dL (8-23); Calcium 9.1 mg/dL (8.5-10.5); Carbon Dioxide 24 mmol/L (22-29); Chloride 102 mmol/L (98-107); Cholesterol 181 mg/dL (0-200); Creatinine Clr Calc Pharmacy 72.4795; Globulin 3.3 g/dL (1.3-4.6); Glucose 184 mg/dL (65-115); HDL Cholesterol 32 mg/dL (60-100); Osmolality Calculated 291 mOsm/kg (285-295); Potassium 4.3 mmol/L (3.5-5.1); Sodium 137 mmol/L (136-145); Total Protein 7.3 g/dL (6.6-8.7); Triglycerides 384 mg/dL (0-150)
[2025-04-06 16:06] LABS: Estmated Average Glucose 200; Hemoglobin A1C 8.6 % (4.0-6.0)
[2025-04-06 16:23] LABS: Glucose Urine UA 2+ (Normal); Nitrate Urine Negative (Negative); Specific Gravity, Urine 1.022 (1.005-1.030)
== END 2025-04-26 23:59 | disposition home or self-care (01) ==
PROVIDERS: Internal Medicine Medical Oncology; PCP Nurse Practitioner Family; Visit Provider Internal Medicine
DX: D75.1 Secondary polycythemia (principal); E55.9 Vitamin D deficiency, unspecified; Z79.899 Other long term (current) drug therapy; I10 Essential (primary) hypertension; E11.9 Type 2 diabetes mellitus without complications; Z87.891 Personal history of nicotine dependence; J44.9 Chronic obstructive pulmonary disease, unspecified; R07.9 Chest pain, unspecified
CPT/HCPCS: 36415; 80053; 80061; 81001; 83036; 85025; 99214

== ENCOUNTER 2025-06-10 20:01 | Outpatient (CLI) | payer MEDICARE, SELFPAY | END 2025-06-10 20:02 | disposition home or self-care (01) | LOC: SLEEP 20:03 | PROVIDERS: PCP Nurse Practitioner Family; Referring Provider Nurse Practitioner Family; Visit Provider Internal Medicine Pulmonary Disease | DX: G47.33 Obstructive sleep apnea (adult) (pediatric) (principal) | CPT/HCPCS: 95810 ==